=== PATIENT | male | born 1965 | race Caucasian/White ===

== ENCOUNTER 2016-12-15 15:07 | Emergency (ER) | payer OTHER ==
[~2016-12-15] VITALS: Ht 170.2 cm; Wt 98.0 kg
[2016-12-15 15:15] VITALS: BP 134/98; PULSE 105; RESP 16; TEMP 98.1; O2SAT 97
[2016-12-15] MEDS ORDERED: HYDR-3534 PO (15:30)
[2016-12-15] MEDS ORDERED: HYDR-3535 PO (15:40)
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
[2016-12-15] MEDS ORDERED: PERC10TA27 PO ×2 (15:53→15:54)
== END 2016-12-15 15:59 | disposition home or self-care (01) ==
LOC: PHEFT 15:07
DX: G89.21 Chronic pain due to trauma (principal)
CPT/HCPCS: 99283

== ENCOUNTER 2016-12-18 14:51 | Emergency (ER) | payer OTHER ==
[~2016-12-18] VITALS: Ht 172.7 cm; Wt 90.0 kg
[~2016-12-18 14:51] MED LIST: PERC10TA27 PO
[2016-12-18 14:54] VITALS: BP 128/79; PULSE 98; RESP 20; TEMP 98.3; O2SAT 96
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
== END 2016-12-18 15:33 | disposition left against medical advice (07) ==
LOC: NEPA 14:51
DX: G89.29 Other chronic pain (principal)
CPT/HCPCS: 99281

== ENCOUNTER 2016-12-18 16:02 | Emergency (ER) | payer OTHER ==
[~2016-12-18] VITALS: Ht 172.7 cm; Wt 98.4 kg
[2016-12-18 16:20] VITALS: BP 142/85; PULSE 100; RESP 18; TEMP 98.1; O2SAT 92
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
== END 2016-12-18 17:15 | disposition home or self-care (01) ==
LOC: PHED 16:02 → PHEFT 17:15
DX: M25.571 Pain in right ankle and joints of right foot (principal); G89.29 Other chronic pain
CPT/HCPCS: 99281